=== PATIENT | male | born 1970 | race Caucasian/White ===

== ENCOUNTER 2017-12-19 19:33 | Emergency (ER) | payer OTHER ==
[~2017-12-19] VITALS: Ht 172.7 cm; Wt 95.3 kg
[~2017-12-19 19:33] MED LIST: BACTRIM DS TAB1 EACH PO; KEFLEX500 MG PO; NORCO 5-325 TA1 EACH PO; POLYMYXIN B/TMP10 ML OP
[2017-12-19 20:04] LABS: ABSOLUTE EOSINOPHILS 0.1 thou/uL (0.0-0.7); ABSOLUTE LYMPHOCYTES 2.1 thou/uL (0.8-5.3); ABSOLUTE MONOCYTES 0.5 thou/uL (0.0-1.2); ABSOLUTE NEUTROPHILS 5.4 thou/uL (1.6-8.1); BASOPHILS 0.5 %; HEMATOCRIT 42.9 % (42.0-52.0); HEMOGLOBIN 14.6 gm/dL (14.0-18.0); LYMPHOCYTES 25.8 %; MCH 29.9 pg (26.0-34.0); MCV 87.8 fL (80.0-100.0); MONOCYTES 5.9 %; MPV 8.1 fl. (7.2-11.1); NUCLEATED RBCS 0 /100WBC; PLATELET COUNT* 196 thou/uL (150-400); POLYS 66.8 %; RBC 4.88 mil/uL (4.50-6.00); RDW-CV 13.2 % (10.5-14.5); WBC 8.1 thou/uL (4.0-11.0)
[2017-12-19 20:13] LABS: APTT 22.6 Seconds (25.0-31.3); INR 1.1; PROTIME 10.3 Seconds (9.20-11.50)
[2017-12-19 20:14] LABS: ALBUMIN 3.9 g/dL (3.4-5.0); CALCIUM 8.4 mg/dL (8.5-10.1); POTASSIUM 3.7 mmol/L (3.5-5.1); TOTAL BILIRUBIN 0.3 mg/dL (<0.1-1.0); TOTAL PROTEIN 7.2 g/dL (6.4-8.2)
[2017-12-19 22:02] LABS: URINE BILIRUBIN NEGATIVE (Negative); URINE BLOOD NEGATIVE (Negative); URINE CLARITY CLEAR; URINE COLOR YELLOW; URINE GLUCOSE-RANDOM NEGATIVE (Negative); URINE KETONES NEGATIVE (Negative); URINE LEUKOCYTES-REFLEX NEGATIVE (Negative); URINE NITRITE-REFLEX NEGATIVE (Negative); URINE PROTEIN NEGATIVE (Negative); URINE SPECIFIC GRAVITY >= 1.030 (1.005-1.030); URINE UROBILINOGEN 0.2 E.U./dl (0.2-1.0)
[2017-12-19] MEDS ORDERED: ROBAXIN500 MG PO (22:50)
[2017-12-19] MEDS ORDERED: NORCO 5-325 TA1 EAC1 PO (22:50)
[2017-12-19] MEDS ORDERED: KEFLEX500 M2 PO (22:50)
[2017-12-19 23:13] VITALS: BP 122/70
== END 2017-12-19 23:14 | disposition home or self-care (01) ==
LOC: M.ERS 19:33
PROVIDERS: Nurse Practitioner Family
DX: S62.101A Fracture of unspecified carpal bone, right wrist, initial encounter for closed fracture (principal); S63.274A Dislocation of unspecified interphalangeal joint of right ring finger, initial encounter; S81.811A Laceration without foreign body, right lower leg, initial encounter; W22.8XXA Striking against or struck by other objects, initial encounter; Y93.89 Activity, other specified; Y92.89 Other specified places as the place of occurrence of the external cause; Y99.8 Other external cause status

== ENCOUNTER 2017-12-21 22:19 | Emergency (ER) | payer OTHER ==
[~2017-12-21] VITALS: Ht 172.7 cm; Wt 95.3 kg
[~2017-12-21 22:19] MED LIST changes: +KEFLEX500 M2 PO; +NORCO 5-325 TA1 EAC1 PO; +ROBAXIN500 MG PO
[2017-12-21 23:08] VITALS: BP 125/71
== END 2017-12-21 23:09 | disposition home or self-care (01) ==
LOC: M.ERS 22:19
DX: S70.11XD Contusion of right thigh, subsequent encounter (principal); X58.XXXD Exposure to other specified factors, subsequent encounter; Y93.89 Activity, other specified; Y92.89 Other specified places as the place of occurrence of the external cause; Y99.8 Other external cause status

== ENCOUNTER → 2018-01-10 | Outpatient (CLI) | payer OTHER | LOC: M.RAD 12:43 | DX: S52.501A Unspecified fracture of the lower end of right radius, initial encounter for closed fracture (principal); X58.XXXA Exposure to other specified factors, initial encounter; Y93.89 Activity, other specified; Y92.89 Other specified places as the place of occurrence of the external cause; Y99.8 Other external cause status ==

== ENCOUNTER → 2018-01-31 | Outpatient (CLI) | payer OTHER | LOC: M.RAD 14:45 | DX: S52.514A Nondisplaced fracture of right radial styloid process, initial encounter for closed fracture (principal); S63.501A Unspecified sprain of right wrist, initial encounter; X58.XXXA Exposure to other specified factors, initial encounter; Y93.89 Activity, other specified; Y92.89 Other specified places as the place of occurrence of the external cause; Y99.8 Other external cause status ==

== ENCOUNTER 2018-09-28 09:49 | Emergency (ER) | payer OTHER ==
[~2018-09-28] VITALS: Ht 172.7 cm; Wt 99.8 kg
[2018-09-28 11:01] LABS: CALCIUM 8.9 mg/dL (8.5-10.1); CREATININE 0.9 mg/dL (0.6-1.3); POTASSIUM 4.1 mmol/L (3.5-5.1)
[2018-09-28] MEDS ORDERED: HYDROCODONE-AP1 EAC6 PO (13:28)
[2018-09-28 13:30] VITALS: BP 156/88
== END 2018-09-28 13:36 | disposition home or self-care (01) ==
LOC: M.ERS 09:49
PROVIDERS: Emergency Medicine Emergency Medical Services
DX: M76.9 Unspecified enthesopathy, lower limb, excluding foot (principal)

== ENCOUNTER 2019-02-05 21:28 | Emergency (ER) | payer OTHER ==
[~2019-02-05] VITALS: Ht 172.7 cm; Wt 95.3 kg
[~2019-02-05 21:28] MED LIST changes: +HYDROCODONE-AP1 EAC6 PO
[2019-02-05] MEDS ORDERED: NAPROSYN500 MG PO (22:53)
[2019-02-05] MEDS ORDERED: ROBAXIN500 MG PO (22:53)
[2019-02-05] MEDS ORDERED: MEDROLDOSEPACK PO (22:53)
[2019-02-05 23:19] VITALS: BP 134/80
== END 2019-02-05 23:20 | disposition home or self-care (01) ==
LOC: M.ERS 21:28
DX: S39.012A Strain of muscle, fascia and tendon of lower back, initial encounter (principal); X58.XXXA Exposure to other specified factors, initial encounter; Y93.89 Activity, other specified; Y92.89 Other specified places as the place of occurrence of the external cause; Y99.8 Other external cause status

== ENCOUNTER → 2019-04-29 | Outpatient (CLI) | payer OTHER ==
[~2019-04-29] MED LIST changes: +MEDROLDOSEPACK PO; +NAPROSYN500 MG PO
== END ==
LOC: M.RAD 07:13
DX: M25.561 Pain in right knee (principal)

== ENCOUNTER 2019-09-04 04:46 | Inpatient (IN) | payer OTHER ==
[~2019-09-04] VITALS: Ht 172.7 cm; Wt 111.1 kg
--- NOTE | ~2019-09-04 | PROC ---
[address] [address] PROCEDURE REPORT Name: BENITEZ HENDERSON Room: [address] IN M.R.#: [id number] Admission: 09/05/19 Attend Phys: Shakira Lemus Discharge: 09/06/19 Date of : 70 Report #: [id number] THIS REPORT FOR: //name// cc: SHEREEN - No family physician/PCP FAM - No family physician/PCP ~ THIS REPORT FOR: //name// For GI report, please see the Provation report in Perceptive 7 content. By: [id number] Records Staff [facility]
[2019-09-04 05:01] VITALS: BP 137/91
--- NOTE | 2019-09-04 05:20 | NUR ---
PT DENIES NEED FOR PAIN MEDICATION. DR SANCHEZ UPDATED.
[2019-09-04 05:22] LABS: ABSOLUTE EOSINOPHILS 0.2 thou/uL (0.0-0.7); ABSOLUTE LYMPHOCYTES 1.2 thou/uL (0.8-5.3); ABSOLUTE MONOCYTES 0.7 thou/uL (0.0-1.2); ABSOLUTE NEUTROPHILS 6.6 thou/uL (1.6-8.1); BASOPHILS 0.4 %; EOSINOPHILS 2.7 %; HEMATOCRIT 40.4 % (42.0-52.0); HEMOGLOBIN 13.9 gm/dL (14.0-18.0); LYMPHOCYTES 13.7 %; MCH 29.7 pg (26.0-34.0); MCHC 34.4 g/dL (28.0-37.0); MCV 86.4 fL (80.0-100.0); MONOCYTES 7.5 %; MPV 8.1 fl. (7.2-11.1); NUCLEATED RBCS 0 /100WBC; PLATELET COUNT* 135 thou/uL (150-400); POLYS 75.7 %; RBC 4.68 mil/uL (4.50-6.00); RDW-CV 13.7 % (10.5-14.5); WBC 8.7 thou/uL (4.0-11.0)
[2019-09-04 05:35] LABS: CALCIUM 7.9 mg/dL (8.5-10.1); CREATININE 1.1 mg/dL (0.6-1.3); POTASSIUM 4.1 mmol/L (3.5-5.1)
[2019-09-04 05:38] LABS: APTT 26.1 Seconds (25.0-31.3); PROTIME 10.6 Seconds (9.20-11.50)
[2019-09-04 05:39] LABS: ALBUMIN 3.8 g/dL (3.4-5.0); TOTAL BILIRUBIN 0.9 mg/dL (<0.1-1.0); TOTAL PROTEIN 7.1 g/dL (6.4-8.2)
[2019-09-04 12:38] VITALS: BP 105/56
--- NOTE | 2019-09-04 16:57 | NUR ---
SANJEEV NOTIFIED UPON PT RETURN FROM CT. PT WAS NOT CONNECTED TO MONITOR HE WAS NOT CONNECTED PRIOR TO CT
[2019-09-04 18:00] VITALS: BP 131/74
--- NOTE | 2019-09-04 19:37 | NUR ---
CALLED CT REPORT TO DR. SALAZAR. ORDERS RECV'D. UPDATED PATIENT & . NOTIFIED GI OF CT RESULTS. DR. BUTR GAVE ORDERS. SPOKE WITH DR. GAMBOA WHO AGREED PATIENT COULD HAVE EGD/COLONOSCOPY TOMORROW LONG THERE WERE NOT ANY CLINICAL CHANGES. DR. MASSEY WILL BE ANESTHESIOLOGIST TOMORROW. DR. BURT AND DR SALAZAR NOTIFIED OF ANESTHESIA'S ANSWER. ORDERS RECV'D FROM DR. BURT AND DR. SALAZAR. PATIENT AND GENERAL LEDGER BOOKKEEPER UPDATED ON PLAN OF CARE: COLON PREP TONIGHT, STOP XARELTO AND START HEPARIN GTT. PLAN FOR EGD & COLONOSCOPY TOMORROW IF PATIENT CLEAR FROM COLON PREP.
[2019-09-04 20:00] VITALS: BP 125/83
[2019-09-04 21:00] VITALS: BP 139/71
[2019-09-05 01:58] LABS: ABSOLUTE EOSINOPHILS 0.1 thou/uL (0.0-0.7); ABSOLUTE LYMPHOCYTES 1.1 thou/uL (0.8-5.3); ABSOLUTE MONOCYTES 0.5 thou/uL (0.0-1.2); ABSOLUTE NEUTROPHILS 7.7 thou/uL (1.6-8.1); BASOPHILS 0.4 %; EOSINOPHILS 0.8 %; HEMATOCRIT 41.3 % (42.0-52.0); HEMOGLOBIN 14.2 gm/dL (14.0-18.0); LYMPHOCYTES 11.7 %; MCHC 34.3 g/dL (28.0-37.0); MCV 87.5 fL (80.0-100.0); MONOCYTES 5.7 %; MPV 8.3 fl. (7.2-11.1); NUCLEATED RBCS 0 /100WBC; PLATELET COUNT* 146 thou/uL (150-400); POLYS 81.4 %; RBC 4.72 mil/uL (4.50-6.00); RDW-CV 13.4 % (10.5-14.5); WBC 9.4 thou/uL (4.0-11.0)
[2019-09-05 02:05] LABS: INR 1.1; PROTIME 11.3 Seconds (9.20-11.50)
[2019-09-05 02:06] LABS: ALBUMIN 3.8 g/dL (3.4-5.0); CALCIUM 8.1 mg/dL (8.5-10.1); CREATININE 0.9 mg/dL (0.6-1.3); POTASSIUM 4.1 mmol/L (3.5-5.1); TOTAL BILIRUBIN 1.1 mg/dL (<0.1-1.0); TOTAL PROTEIN 7.1 g/dL (6.4-8.2)
[2019-09-05 02:07] LABS: APTT 58.3 Seconds (25.0-31.3)
[2019-09-05 02:08] LABS: CA 125 5.1 U/mL (Not Estab.)
[2019-09-05 04:19] VITALS: BP 128/69
--- NOTE | 2019-09-05 08:00 | NUR ---
RECEIVED REPORT FROM TELEPHONE MAINTAINER GINO AT 1945. PT ARRIVED TO UNIT AT 1999 VIA ER CART. PT AAOX4. ORIENTED TO ROOM AND CALL LIGHT. NURSING ASSESSMENT COMPLETED. BOWEL PREP ADMINISTERED AND COMPLETED BY MIDNIGHT. NPO FOR COLONOSCOPY. HOURLY ROUNDING COMPLETED. CALL LIGHT WITHIN REACH. NEGATIVE SEPSIS SCREENING THIS SHIFT.
[2019-09-05 08:47] VITALS: BP 115/70
[2019-09-05 08:53] VITALS: BP 115/70
[2019-09-05 12:54] VITALS: BP 122/69
[2019-09-05 14:37] LABS: ABSOLUTE EOSINOPHILS 0.1 thou/uL (0.0-0.7); ABSOLUTE LYMPHOCYTES 1.3 thou/uL (0.8-5.3); ABSOLUTE MONOCYTES 0.5 thou/uL (0.0-1.2); ABSOLUTE NEUTROPHILS 4.8 thou/uL (1.6-8.1); BASOPHILS 0.5 %; EOSINOPHILS 1.8 %; HEMATOCRIT 39.9 % (42.0-52.0); HEMOGLOBIN 13.7 gm/dL (14.0-18.0); LYMPHOCYTES 19.3 %; MCHC 34.4 g/dL (28.0-37.0); MONOCYTES 7.1 %; MPV 8.3 fl. (7.2-11.1); NUCLEATED RBCS 0 /100WBC; PLATELET COUNT* 147 thou/uL (150-400); POLYS 71.3 %; RBC 4.58 mil/uL (4.50-6.00); RDW-CV 13.5 % (10.5-14.5); WBC 6.7 thou/uL (4.0-11.0)
[2019-09-05 14:45] LABS: APTT 47.5 Seconds (25.0-31.3); CREATININE 0.8 mg/dL (0.6-1.3); INR 1.1; PROTIME 10.8 Seconds (9.20-11.50)
[2019-09-05 19:45] VITALS: BP 145/76
[2019-09-06 00:13] VITALS: BP 131/59
--- NOTE | 2019-09-06 04:29 | NUR ---
ASSUMED CARE OF PT AT 1900. PT IS ALERT AND ORIENTED. VSS. PERRFAVIAN. PT IS UP AD MCKENNA. PT IS NPO FOR SURGERY. PT IS IN SINUS RYTHM ON THE TELEMETRY. PT IS RESTING COMFORTABLY IN BED. RESPIRATIONS ARE EVEN AND NONLABORED. WILL CONTINUE TO MONITOR PT.
[2019-09-06 04:41] LABS: ABSOLUTE EOSINOPHILS 0.1 thou/uL (0.0-0.7); ABSOLUTE LYMPHOCYTES 1.3 thou/uL (0.8-5.3); ABSOLUTE MONOCYTES 0.8 thou/uL (0.0-1.2); ABSOLUTE NEUTROPHILS 8.3 thou/uL (1.6-8.1); BASOPHILS 0.3 %; EOSINOPHILS 0.9 %; HEMATOCRIT 38.2 % (42.0-52.0); HEMOGLOBIN 13.3 gm/dL (14.0-18.0); LYMPHOCYTES 12.7 %; MCH 30.1 pg (26.0-34.0); MCHC 34.9 g/dL (28.0-37.0); MCV 86.3 fL (80.0-100.0); MONOCYTES 7.3 %; MPV 8.4 fl. (7.2-11.1); NUCLEATED RBCS 0 /100WBC; PLATELET COUNT* 150 thou/uL (150-400); POLYS 78.8 %; RBC 4.42 mil/uL (4.50-6.00); RDW-CV 13.4 % (10.5-14.5); WBC 10.5 thou/uL (4.0-11.0)
[2019-09-06 04:47] VITALS: BP 112/73
[2019-09-06 04:50] VITALS: BP 112/73
[2019-09-06 04:54] LABS: ALBUMIN 3.2 g/dL (3.4-5.0); CALCIUM 7.7 mg/dL (8.5-10.1); CREATININE 0.9 mg/dL (0.6-1.3); POTASSIUM 3.9 mmol/L (3.5-5.1); PROTIME 10.6 Seconds (9.20-11.50); TOTAL BILIRUBIN 0.5 mg/dL (<0.1-1.0); TOTAL PROTEIN 6.5 g/dL (6.4-8.2)
[2019-09-06] MEDS ORDERED: XARELTO20 MG PO (10:54)
[2019-09-06] MEDS ORDERED: XARELTO15 MG PO (10:56)
[2019-09-06] MEDS ORDERED: MELATONIN10 M3 PO (10:57)
[2019-09-06 11:00] VITALS: BP 112/73
[2019-09-06] MEDS ORDERED: PAIN RELIEVER325 MG PO (11:00)
[2019-09-06] MEDS ORDERED: IBUPROFEN200 M1 PO (11:09)
[2019-09-06 11:39] VITALS: BP 122/68
--- NOTE | 2019-09-06 14:00 | NUR ---
ASSUMED PT CARE AT 0730. ASSESSMENT COMPLETED CHARTED. ABLE TO MAKE NEEDS KNOWN. UP AD MCKENNA. SURGERY TODAY AT AROUND 8, CAME BACK AROUND 11. PT ON HEPARIN TILL ABOUT 30 MINS BEFORE DISCHARGE. NO C/O PAIN. RIGHT LEG SORENESS DOWNSTAIRS. DISCHARGE APPROVED. DISCHARGE PAPERWORK, SCRIPS, AND MED INFO GIVEN. NO COMMENTS, QUESTIONS, OR CONCERNS NOTED. IV AND HEART MONITOR REMOVED. PT LEFT IN WHEELCHAIR DOWN TO WIFES CAR AT AROUND 1358 WITH ALL BELONGINGS IN TOW.
--- NOTE | 2019-09-10 17:11 | OP ---
[facility] [address] [place] [address] OPERATIVE REPORT Name: BEATRIZBENITEZRAF MACDONALD Room: [address] IN M.R.#: [id number] Admission: 09/05/19 Attend Phys: Shakira Lemus Discharge: 09/06/19 Date of : 70 Report #: [id number] THIS REPORT FOR: //name// cc: SHEREEN Santos family physician/PCP SHEREEN - Danielle family physician/PCP ~ THIS REPORT FOR: //name// CC: SHEREEN physician/PCP Gerber Mack DATE OF SERVICE: 09/06/2019 PREOPERATIVE DIAGNOSIS: Severe and extensive deep venous thrombosis, right lower extremity. POSTOPERATIVE DIAGNOSIS: Severe and extensive deep venous thrombosis, right lower extremity. PROCEDURES: 1. Venous thrombectomy. 2. Ultrasound guidance for venous access right popliteal vein. 3. Venogram right lower extremity. 4. Central venogram inferior vena cava. FINDINGS 1. There is extensive thrombus from the right external iliac vein, common femoral vein and superficial femoral veins. 2. After thrombectomy these are widely patent. 3. Inferior vena cava is widely patent as well as the proximal iliac venous system on the right. 4. Popliteal vein and distally are free of thrombus. SURGEON: Mike Hale MD PATENT PROSECUTION ATTORNEY: None. ANESTHESIA: Local sedation. COMPLICATIONS: None. ESTIMATED BLOOD LOSS: Minimal. 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 He presented with sudden onset of right lower extremity swelling 4 days ago. Ultrasound revealed [facility] [address] [place] [address] OPERATIVE REPORT Name: BEATRIZBENITEZ RENAE Room: [address] IN [facility].#: [id number] Admission: 09/05/19 Attend Phys: Shakira Lemus Discharge: 09/06/19 Date of : 70 Report #: [id number] extensive thrombosis throughout the right lower extremity. This is severe lifestyle limiting and he is young. For this reason, I am recommending open thrombectomy to debulk the thrombus. Informed consent was obtained from the patient with risks including but not limited to bleeding, infection, need for further surgery, pain, , heart attack, stroke, recurrence. The patient understood these risks and was agreeable to proceed. DESCRIPTION OF PROCEDURE: The patient was taken to the angio suite, placed in the prone position. Timeout was performed. The patient's right popliteal fossa was prepped and draped in usual sterile fashion. I infused 10 mL of 1% lidocaine for local anesthetic. Under ultrasound guidance with an image saved, I cannulated the right popliteal vein without difficulty. I used Seldinger technique to exchange out for a 6-Latvian sheath. I carefully passed a wire through the thrombus into the inferior vena cava. I passed an Omniflush catheter into the inferior vena cava performed inferior venacavogram. I withdrew the catheter into the iliac and femoral system performing venograms identifying the extent of the clot. I then opened an artery clot Trevo sheath. I upsized to the sheath. I then opened the clot Trevo device. I passed a clot Trevo device through the thrombus and deployed it proximally. I then withdrew the clot Trevo device deployed removing a large amount of thrombus. I made numerous passes #5 removing a large amount of thrombus until I no longer withdrew thrombus. On each draw, I did perform suction thrombectomy through the side port. I returned a large amount of fresh thrombus as well as multiple large pieces of more chronic-appearing thrombus. Once I withdrew with no further thrombus I repeated my venogram, which showed no residual thrombus throughout with an excellent result, all the way into the inferior vena cava. Through the sheath and put a Monocryl stitch in the skin we held pressure for 10 minutes. There was no bleeding or hematoma. The patient tolerated the procedure well and was taken alert and awake to recovery room in good condition. All needle and instrument counts were correct. <ELECTRONICALLY SIGNED> By: Mike Hale MD 09/10/19 1711 [id number] Hale MD /nt
== END 2019-09-06 14:00 | disposition home or self-care (01) | DRG 270 ==
LOC: M.ERS 04:46 → M.TBA-ER 08:12 → M.2W 19:54
PROVIDERS: Family Medicine; Internal Medicine Gastroenterology; Surgery; ADMIT Internal Medicine
PROC: 0DJ08ZZ Inspection of Upper Intestinal Tract, Via Natural or Artificial Opening Endoscopic (ICD-10-PCS; principal; 2019-09-05)
PROC: 0DJD8ZZ Inspection of Lower Intestinal Tract, Via Natural or Artificial Opening Endoscopic (ICD-10-PCS; principal; 2019-09-05)
PROC: 04CK0ZZ Extirpation of Matter from Right Femoral Artery, Open Approach (ICD-10-PCS; 2019-09-06)
PROC: B51B1ZZ Fluoroscopy of Right Lower Extremity Veins using Low Osmolar Contrast (ICD-10-PCS; 2019-09-06)
PROC: B5191ZZ Fluoroscopy of Inferior Vena Cava using Low Osmolar Contrast (ICD-10-PCS; 2019-09-06)
PROC: 04CH0ZZ Extirpation of Matter from Right External Iliac Artery, Open Approach (ICD-10-PCS; 2019-09-06)
DX: I82.421 Acute embolism and thrombosis of right iliac vein (principal); I26.99 Other pulmonary embolism without acute cor pulmonale; K22.10 Ulcer of esophagus without bleeding; I82.431 Acute embolism and thrombosis of right popliteal vein; M77.9 Enthesopathy, unspecified; K64.4 Residual hemorrhoidal skin tags; S80.11XA Contusion of right lower leg, initial encounter; X58.XXXA Exposure to other specified factors, initial encounter; S63.254A Unspecified dislocation of right ring finger, initial encounter; S62.609A Fracture of unspecified phalanx of unspecified finger, initial encounter for closed fracture; S81.811A Laceration without foreign body, right lower leg, initial encounter; S39.012A Strain of muscle, fascia and tendon of lower back, initial encounter; S62.101A Fracture of unspecified carpal bone, right wrist, initial encounter for closed fracture; Z79.899 Other long term (current) drug therapy; Z82.3 Family history of stroke; Y93.89 Activity, other specified; Y92.89 Other specified places as the place of occurrence of the external cause; Y99.8 Other external cause status

== ENCOUNTER → 2019-09-25 | Outpatient (CLI) | payer OTHER ==
[~2019-09-25] MED LIST changes: +IBUPROFEN200 M1 PO; +MELATONIN10 M3 PO; +PAIN RELIEVER325 MG PO; +XARELTO15 MG PO; +XARELTO20 MG PO
[2019-09-25 10:17] LABS: CHOLESTEROL 178 mg/dL (<200); HDL CHOLESTEROL 48 mg/dL (>40); LDL CHOLESTEROL 122 mg/dL (<100); SERUM ASSESSMENT Clear; TC:HDL 3.7 Ratio (Not establshd); TRIGLYCERIDE 40 mg/dL (<150); VLDL 8 mg/dL (<40)
== END ==
LOC: M.LAB 09:41
PROVIDERS: Family Medicine
DX: Z00.00 Encounter for general adult medical examination without abnormal findings (principal); Z13.220 Encounter for screening for lipoid disorders; Z13.29 Encounter for screening for other suspected endocrine disorder

== ENCOUNTER → 2019-10-27 | Outpatient (CLI) | payer OTHER | LOC: M.ULTRA 07:03 | DX: I82.411 Acute embolism and thrombosis of right femoral vein (principal) ==

== ENCOUNTER → 2019-11-17 | Outpatient (CLI) | payer OTHER | LOC: M.LAB 11:28 | DX: I82.411 Acute embolism and thrombosis of right femoral vein (principal) ==

== ENCOUNTER 2019-12-11 07:56 | Emergency (ER) | payer OTHER ==
[~2019-12-11] VITALS: Ht 172.7 cm; Wt 102.1 kg
[2019-12-11] MEDS ORDERED: PROBIOTIC1 EAC7 PO (08:04)
[2019-12-11] MEDS ORDERED: ELIQUIS2.5 MG PO (08:05)
[2019-12-11] MEDS ORDERED: SUPER THERAVIT1 EACH PO (08:05)
[2019-12-11] MEDS ORDERED: ELIQUIS5 MG PO (08:05)
[2019-12-11] MEDS ORDERED: POLYMYXIN B/TMP10 ML OPHTHALMIC (08:23)
[2019-12-11 09:24] VITALS: BP 141/86
== END 2019-12-11 09:24 | disposition home or self-care (01) ==
LOC: M.ERS 07:56
DX: T15.01XA Foreign body in cornea, right eye, initial encounter (principal); M72.2 Plantar fascial fibromatosis

== ENCOUNTER → 2020-02-23 | Outpatient (CLI) | payer OTHER ==
[~2020-02-23] MED LIST changes: +ELIQUIS2.5 MG PO; +ELIQUIS5 MG PO; +POLYMYXIN B/TMP10 ML OPHTHALMIC; +PROBIOTIC1 EAC7 PO; +SUPER THERAVIT1 EACH PO
== END ==
LOC: M.ULTRA 06:52
PROVIDERS: ATTEND Internal Medicine Hematology & Oncology
DX: I82.411 Acute embolism and thrombosis of right femoral vein (principal)

== ENCOUNTER 2020-09-15 10:35 | Emergency (ER) | payer OTHER ==
[~2020-09-15] VITALS: Ht 172.7 cm; Wt 95.3 kg
[2020-09-15 11:21] LABS: ABSOLUTE EOSINOPHILS 0.1 thou/uL (0.0-0.7); ABSOLUTE LYMPHOCYTES 1.5 thou/uL (0.8-5.3); ABSOLUTE MONOCYTES 0.4 thou/uL (0.0-1.2); ABSOLUTE NEUTROPHILS 3.3 thou/uL (1.6-8.1); BASOPHILS 0.7 %; EOSINOPHILS 1.6 %; HEMATOCRIT 42.8 % (42.0-52.0); HEMOGLOBIN 14.4 gm/dL (14.0-18.0); LYMPHOCYTES 27.5 %; MCH 29.6 pg (26.0-34.0); MCHC 33.6 g/dL (28.0-37.0); MONOCYTES 7.1 %; MPV 7.7 fl. (7.2-11.1); NUCLEATED RBCS 0 /100WBC; PLATELET COUNT* 191 thou/uL (150-400); POLYS 63.1 %; RBC 4.86 mil/uL (4.50-6.00); RDW-CV 13.3 % (10.5-14.5); WBC 5.3 thou/uL (4.0-11.0)
[2020-09-15 11:35] LABS: CALCIUM 8.9 mg/dL (8.5-10.1); POTASSIUM 4.4 mmol/L (3.5-5.1)
[2020-09-15 11:47] LABS: ALBUMIN 3.8 g/dL (3.4-5.0); TOTAL BILIRUBIN 0.4 mg/dL (<0.1-1.0); TOTAL PROTEIN 6.9 g/dL (6.4-8.2)
[2020-09-15 12:09] VITALS: BP 129/75
--- NOTE | 2020-09-15 15:36 | EKG ---
[place] [address] ELECTROCARDIOGRAM REPORT Name: BENITEZ HENDERSON Room: [facility]#: [id number] Admission: 09/15/20 Attend Phys: Discharge: 09/15/20 Date of : 70 Date of Service: 09/15/20 1104 Report #: [id number] THIS REPORT FOR: //name// [facility] ED Test Date: 2020-09-15 Test Time: 11:04:42 Pat Name: BENITEZ HENDERSON Department: Room: Gender: Director Of Marketing And Promotions: [place] : 1970 Requested By: Jennifer Nixon Order Number: [id number] : Yayo Paredes Measurements Intervals Grant Rate: 51 P: 30 UT: 163 QRS: 3 QRSD: 100 T: 20 QT: 405 QTc: 373 Interpretive Statements Sinus rhythm Abnormal R-wave progression, early transition Left ventricular hypertrophy No previous ECG available for comparison Electronically Signed On 09-15-2020 15:35:54 REFUSE AND RECYCLING WORKER by Yayo Paredes [email or web address] <ELECTRONICALLY SIGNED> By: Yayo Paredes MD, [facility] 09/15/20 1535 1104 1104 Yayo Paredes MD, FAC /EPI
== END 2020-09-15 12:10 | disposition home or self-care (01) ==
LOC: M.ERS 10:35
PROVIDERS: Nurse Practitioner Family
DX: S76.911A Strain of unspecified muscles, fascia and tendons at thigh level, right thigh, initial encounter (principal); R06.09 Other forms of dyspnea; E66.9 Obesity, unspecified; Z86.718 Personal history of other venous thrombosis and embolism; Z86.711 Personal history of pulmonary embolism; Z98.890 Other specified postprocedural states; Z79.899 Other long term (current) drug therapy; Z68.31 Body mass index [BMI] 31.0-31.9, adult; X50.9XXA Other and unspecified overexertion or strenuous movements or postures, initial encounter; Y93.H2 Activity, gardening and landscaping; Y92.89 Other specified places as the place of occurrence of the external cause; Y99.8 Other external cause status

== ENCOUNTER 2020-10-10 14:29 | Emergency (ER) | payer OTHER ==
[~2020-10-10] VITALS: Ht 172.7 cm; Wt 104.3 kg
[2020-10-10 15:15] VITALS: BP 155/90
[2020-10-10] MEDS ORDERED: CIPROFLOXIN HC2.5 M1 OPHTHALMIC (15:15)
== END 2020-10-10 15:15 | disposition home or self-care (01) ==
LOC: M.ERS 14:29
DX: T15.01XA Foreign body in cornea, right eye, initial encounter (principal); Z98.890 Other specified postprocedural states; Z86.718 Personal history of other venous thrombosis and embolism; Z86.711 Personal history of pulmonary embolism; X58.XXXA Exposure to other specified factors, initial encounter; Y93.89 Activity, other specified; Y92.89 Other specified places as the place of occurrence of the external cause; Y99.8 Other external cause status

== ENCOUNTER 2020-10-18 02:31 | Emergency (ER) | payer OTHER ==
[~2020-10-18] VITALS: Ht 172.7 cm; Wt 104.3 kg
[~2020-10-18 02:31] MED LIST changes: +CIPROFLOXIN HC2.5 M1 OPHTHALMIC
[2020-10-18] MEDS ORDERED: HYDROCODON-ACE1 EAC8 PO (03:33)
[2020-10-18 04:09] VITALS: BP 132/60
== END 2020-10-18 04:09 | disposition home or self-care (01) ==
LOC: M.ERS 02:31
DX: H16.001 Unspecified corneal ulcer, right eye (principal); Z86.718 Personal history of other venous thrombosis and embolism; Z86.711 Personal history of pulmonary embolism

== ENCOUNTER 2021-02-26 18:12 | Inpatient (IN) | payer OTHER ==
[~2021-02-26] VITALS: Ht 172.7 cm; Wt 99.8 kg
--- NOTE | ~2021-02-26 | CON ---
[address] [address] CONSULTATION Name: BEATRIZBENITEZ D Room: [address] IN M.R.#: [id number] Admission: 02/27/21 Attend Phys: Shakira Lemus Discharge: 03/01/21 Date of : 70 Report #: [id number] THIS REPORT FOR: cc: Joe Iverson Vincent R. DO Elia, Manana MD ~ DATE OF CONSULTATION: 03/01/2021 REQUESTING PHYSICIAN: Vinicio Christianson MD. REASON FOR CONSULTATION: Recurrent pulmonary emboli. HISTORY OF PRESENT ILLNESS: The patient is a pleasant 50-year-old man who is admitted to the hospital with complaints of left lower extremity pain and dyspnea. He had an ultrasound of lower extremity done, which showed occlusive DVT. Chest CT shows nonocclusive pulmonary artery emboli within bilateral lower lobe segmental and subsegmental pulmonary artery branches. The patient is admitted to the hospital for anticoagulation. Oncology consultation with Hematology consult is requested. He underwent left lower extremity thrombectomy. He is feeling better. He does not have chest pain or shortness of breath. He has history of PE and DVT in 2019. He was hospitalized at [facility]. He had a hypercoagulable workup, which was positive for lupus anticoagulant. Anticardiolipin antibodies were negative. ____ hypercoagulable workup was negative. He was seen by Dr. Porter as an outpatient. He continued anticoagulation for 6 months. Repeated hypercoagulable workup did not show any abnormality. Dr. Porter recommended to discontinue chronic anticoagulation. He was doing fine until recently, developed DVT and PE again. No contributory factor today on this episode. PAST MEDICAL HISTORY: Significant for DVT in right lower extremity and PE. SOCIAL HISTORY: He is . 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 He does not smoke, does not drink alcohol excessively. FAMILY HISTORY: Noncontributory. REVIEW OF SYSTEMS: See above. He does not have complaints of recent weight loss. Denies cough, hemoptysis. Denies nausea, vomiting, diarrhea. Denies headaches. PHYSICAL EXAMINATION: GENERAL: Well-developed, well-nourished man, not in acute distress. VITAL SIGNS: Blood pressure 146/68, heart rate is 66, temperature 98.3. HEENT: Neck is supple. No thrush. HEART: Normal S1, [place] [address] CONSULTATION Name: BENITEZ HENDERSON Room: [address]#: [id number] Admission: 02/27/21 Attend Phys: Shakira Lemus Discharge: 03/01/21 Date of : 70 Report #: [id number] LUNGS: Clear. ABDOMEN: Soft. LOWER EXTREMITIES: No swelling, no edema. There is no peripheral lymphadenopathy. LABORATORY DATA: White count 7.3, hemoglobin 13.2, platelets 169. Doppler ultrasound shows occlusive thrombus in the left popliteal and femoral veins. CT of chest reviewed, PE as above. 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 Agree with anticoagulation. The patient is being discharged today. Advised to see Dr. Porter as an outpatient for further workup. Most likely he will need lifelong anticoagulation at this point. Thank you very much for allowing me to participate in the care of this patient. By: [id number] Adams MD /nt
[~2021-02-26 18:12] MED LIST changes: +HYDROCODON-ACE1 EAC8 PO; +MOBIC15 MG PO
[2021-02-26 18:55] VITALS: BP 144/95
[2021-02-26 21:04] LABS: ABSOLUTE BASOPHILS 0.1 thou/uL (0.0-0.2); ABSOLUTE EOSINOPHILS 0.2 thou/uL (0.0-0.7); ABSOLUTE LYMPHOCYTES 1.8 thou/uL (0.8-5.3); ABSOLUTE MONOCYTES 0.5 thou/uL (0.0-1.2); ABSOLUTE NEUTROPHILS 4.2 thou/uL (1.6-8.1); BASOPHILS 0.9 %; HEMATOCRIT 40.2 % (42.0-52.0); HEMOGLOBIN 13.3 gm/dL (14.0-18.0); MCHC 33.1 g/dL (28.0-37.0); MCV 87.6 fL (80.0-100.0); MONOCYTES 8.1 %; MPV 7.7 fl. (7.2-11.1); NUCLEATED RBCS 0 /100WBC; PLATELET COUNT* 170 thou/uL (150-400); RBC 4.59 mil/uL (4.50-6.00); RDW-CV 13.3 % (10.5-14.5); WBC 6.7 thou/uL (4.0-11.0)
[2021-02-26 21:13] LABS: CALCIUM 8.2 mg/dL (8.5-10.1); CREATININE 0.9 mg/dL (0.6-1.3); POTASSIUM 3.9 mmol/L (3.5-5.1)
[2021-02-26 22:34] LABS: APTT 24.8 Seconds (25.0-31.3); PROTIME 10.5 Seconds (9.20-11.50)
[2021-02-27] VITALS (7 sets, daily range): BP systolic 117–123; BP diastolic 61–78
[2021-02-28] VITALS (13 sets, daily range): BP systolic 121–138; BP diastolic 69–78
[2021-02-28 04:51] LABS: ABSOLUTE EOSINOPHILS 0.2 thou/uL (0.0-0.7); ABSOLUTE LYMPHOCYTES 1.5 thou/uL (0.8-5.3); ABSOLUTE MONOCYTES 0.4 thou/uL (0.0-1.2); ABSOLUTE NEUTROPHILS 3.6 thou/uL (1.6-8.1); BASOPHILS 0.4 %; EOSINOPHILS 3.7 %; HEMATOCRIT 36.2 % (42.0-52.0); HEMOGLOBIN 12.6 gm/dL (14.0-18.0); MCH 30.2 pg (26.0-34.0); MCHC 34.7 g/dL (28.0-37.0); MONOCYTES 7.4 %; MPV 7.6 fl. (7.2-11.1); NUCLEATED RBCS 0 /100WBC; PLATELET COUNT* 156 thou/uL (150-400); POLYS 62.5 %; RBC 4.16 mil/uL (4.50-6.00); RDW-CV 13.3 % (10.5-14.5); WBC 5.8 thou/uL (4.0-11.0)
[2021-02-28 05:01] LABS: CALCIUM 7.8 mg/dL (8.5-10.1); POTASSIUM 3.8 mmol/L (3.5-5.1)
[2021-03-01 04:39] VITALS: BP 146/68
[2021-03-01 05:09] LABS: ABSOLUTE EOSINOPHILS 0.2 thou/uL (0.0-0.7); ABSOLUTE LYMPHOCYTES 1.2 thou/uL (0.8-5.3); ABSOLUTE MONOCYTES 0.6 thou/uL (0.0-1.2); ABSOLUTE NEUTROPHILS 5.3 thou/uL (1.6-8.1); BASOPHILS 0.3 %; EOSINOPHILS 2.7 %; HEMOGLOBIN 13.2 gm/dL (14.0-18.0); LYMPHOCYTES 15.9 %; MCH 30.2 pg (26.0-34.0); MCHC 34.8 g/dL (28.0-37.0); MCV 86.8 fL (80.0-100.0); MONOCYTES 8.4 %; MPV 7.6 fl. (7.2-11.1); NUCLEATED RBCS 0 /100WBC; PLATELET COUNT* 169 thou/uL (150-400); POLYS 72.7 %; RBC 4.38 mil/uL (4.50-6.00); RDW-CV 13.2 % (10.5-14.5); WBC 7.3 thou/uL (4.0-11.0)
[2021-03-01 05:13] LABS: CALCIUM 8.1 mg/dL (8.5-10.1); CREATININE 0.9 mg/dL (0.6-1.3); POTASSIUM 3.7 mmol/L (3.5-5.1)
--- NOTE | 2021-03-01 07:25 | NUR ---
CHANGE OF SHIFT REPORT GIVEN PATIENT SEEN AT BEDSIDE, IN BED ASLEEP ASSUMED PATIENT CARE
[2021-03-01 08:00] VITALS: BP 130/72
--- NOTE | 2021-03-01 10:16 | NUR ---
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 PT USES 0 DME. PT HAS 0 HX OF HH OR SNF. PT'S SPOUSE INFORMS THAT THEY HAVE INFORMED OF POSSIBLE D/C HOME TODAY AND THAT HE WILL NEED BLOOD THINNERS. PT HAS BEEN ON BLOOD THINNERS IN THE PAST AND IT WAS COVERED BY HIS INSURANCE ($25 CO-PAY FOR 3 MONTHS). NO OTHER CM NEEDS ANTICIPATED. CM WILL REMAIN AVAILABLE TO ASSIST AND FOLLOW NEEDED.
[2021-03-01] MEDS ORDERED: XARELTO15 MG PO (10:41)
[2021-03-01] MEDS ORDERED: XARELTO20 MG PO (10:41)
[2021-03-01 13:24] VITALS: BP 130/72
--- NOTE | 2021-03-01 14:15 | NUR ---
patient discharged to home dcd via [facility] to [facility] car dc instructions given with paperwork iv and heart monitor removed personal belongings returned
== END 2021-03-01 14:24 | disposition home or self-care (01) | DRG 270 ==
LOC: M.ERS 18:12 → M.2W 02-27 02:42 → M.TBA-ER 02-27 02:42 → M.2W 02-27 12:48
PROVIDERS: Internal Medicine; Personal Emergency Response Attendant; Physician Assistant; ADMIT Internal Medicine; ATTEND Internal Medicine
PROC: 06CN3ZZ Extirpation of Matter from Left Femoral Vein, Percutaneous Approach (ICD-10-PCS; principal; 2021-02-28)
PROC: B5191ZA Fluoroscopy of Inferior Vena Cava using Low Osmolar Contrast, Guidance (ICD-10-PCS; principal; 2021-02-28)
PROC: 067N3ZZ Dilation of Left Femoral Vein, Percutaneous Approach (ICD-10-PCS; principal; 2021-02-28)
PROC: B51C1ZA Fluoroscopy of Left Lower Extremity Veins using Low Osmolar Contrast, Guidance (ICD-10-PCS; principal; 2021-02-28)
DX: I82.412 Acute embolism and thrombosis of left femoral vein (principal); I26.94 Multiple subsegmental thrombotic pulmonary emboli without acute cor pulmonale; I82.432 Acute embolism and thrombosis of left popliteal vein; R00.1 Bradycardia, unspecified; Z20.822 Contact with and (suspected) exposure to COVID-19; Z86.711 Personal history of pulmonary embolism

== ENCOUNTER → 2021-05-27 | Outpatient (CLI) | payer OTHER | LOC: M.INT 03-14 12:48 → M.ULTRA 08:16 | PROVIDERS: ATTEND Radiology Diagnostic Radiology | DX: I87.8 Other specified disorders of veins (principal); I82.513 Chronic embolism and thrombosis of femoral vein, bilateral ==